=== PATIENT | male | born 1985 | race Caucasian/White ===

== ENCOUNTER 2018-11-28 01:12 | Emergency (ER) | payer OTHER ==
[~2018-11-28] VITALS: Ht 165.1 cm; Wt 59.4 kg
--- NOTE | 2018-11-28 01:23 | NUR ---
PT BIBRA FROM NURSING HOME WITH [employer], PER REPORT PT WAS CHEWING UP METH, PT AAOX4, PT AGGRESSIVE TO STAFF, [employer] OFFICERS AT BEDSIDE, NAD NOTED, MD CARMEN AT BEDSIDE FOR EVAL
--- NOTE | 2018-11-28 01:39 | NUR ---
NUCLEAR MEDICINE CHIEF TECHNOLOGIST AT BEDSIDE FOR BLOOD DRAW
[2018-11-28 01:48] LABS: BASOPHILS # (AUTO) 0.1 /CMM (0.0-0.2); BASOPHILS % (AUTO) 0.5 % (0.0-2.0); EOSINOPHILS % (AUTO) 2.3 % (0.0-6.0); HEMATOCRIT 48 % (39-51); LYMPHOCYTES # (AUTO) 2.8 /CMM (0.8-4.8); LYMPHOCYTES % (AUTO) 23.1 % (20.0-44.0); MEAN CORPUSCULAR HGB CONC 34 g/dl (31.0-36.0); MEAN CORPUSCULAR VOLUME 87 fL (80-96); MONOCYTES # (AUTO) 1.2 /CMM (0.1-1.30); MONOCYTES % (AUTO) 9.8 % (2.0-12.0); NEUTROPHILS # (AUTO) 7.8 /CMM (1.8-8.9); NEUTROPHILS % (AUTO) 64.3 % (43.0-81.0); PLATELET COUNT (AUTO) 401 /CMM (150-450); WHITE BLOOD COUNT (AUTO) 12.1 K/uL (4.3-11.0)
--- NOTE | 2018-11-28 01:57 | NUR ---
PT UNABLE TO PROVIDE URINE SAMPLE AT THIS TIME, AWARE
[2018-11-28 02:05] LABS: ALANINE AMINOTRANSFERASE 89 U/L (12-78); ALCOHOL, BLOOD < 3 mg/dL (0-0); ALKALINE PHOSPHATASE 99 U/L (46-116); ASPARTATE AMINOTRANSFERASE 42 U/L (15-37); BILIRUBIN,DIRECT 0.1 mg/dL (0.0-0.2); BILIRUBIN,TOTAL 0.8 mg/dL (0.2-1.0); CALCIUM, SERUM 9.1 mg/dL (8.5-10.1); CARBON DIOXIDE 30 mmol/L (21-32); CHLORIDE 101 mmol/L (98-107); CREATININE 0.9 mg/dL (0.6-1.3); GLUCOSE 88 mg/dL (74-106); POTASSIUM 3.6 mmol/L (3.5-5.1); SODIUM SERUM 139 mmol/L (136-145); TOTAL PROTEIN, SERUM 7.7 g/dL (6.4-8.2); UREA NITROGEN, BLOOD 12 mg/dL (7-18)
[2018-11-28 02:07] LABS: ACETAMINOPHEN 0 ug/ml (10-30); SALICYLATE 2.5 mg/dL (2.8-20.0)
--- NOTE | 2018-11-28 02:52 | NUR ---
PT UNABLE TO PROVIDE URINE SAMPLE AT THIS TIME. MD FINK
--- NOTE | 2018-11-28 04:00 | NUR ---
PT UNABLE TO PROVIDE URINE SAMPLE, AWARE
--- NOTE | 2018-11-28 04:12 | NUR ---
PT MEDICALLY CLEARED FOR BOOKING. [employer] AT BEDSIDE. ABLE TO AMBULATE WITH STEADY GAIT.
[2018-11-28 04:15] VITALS: BP 134/89
== END 2018-11-28 04:16 ==
LOC: ER 01:12
DX: Z02.89 Encounter for other administrative examinations (principal); F20.9 Schizophrenia, unspecified; Z88.0 Allergy status to penicillin
CPT/HCPCS: 36415; 80048; 80076; 80307; 80329; 85025; 99283; G0480